=== PATIENT | female | born 1940 | race Caucasian/White ===

== ENCOUNTER → 2020-09-02 | Outpatient (CLI) | payer MEDICARE, BC ==
[~2020-09-02] MED LIST: IOHEXOL 240 MG/ML 50ML VIAL. ONE
--- NOTE | 2020-09-02 13:43 | RAD ---
DATE: 09/02/2020 1:00 PM EXAM: DIGITAL DIAGNOSTIC BILATERAL HISTORY: Bilateral digital diagnostic mammogram requested for intermittent ill-defined breast pain in the right breast between the 4-5 o'clock position. COMPARISON: No priors are currently available for comparison. Bilateral full field craniocaudal and mediolateral oblique images were obtained using digital technique. This study was interpreted with the benefit of Computerized Aided Detection (CAD). FINDINGS: Breast Density: FATTY The Breast Parenchyma is primarily fatty replaced. Breast parenchyma level density A. No suspicious masses, microcalcifications or architectural distortion is present to suggest malignancy in either breast. No mammographic correlate to the area of discomfort in the lower inner right breast. Since the breast tissue is fatty replaced and shows no mammographic abnormality, additional imaging by ultrasound was not pursued at this visit. The visualized axillae on mammography are unremarkable. IMPRESSION: No mammographic evidence of malignancy. BI-RADS CATEGORY: 1 NEGATIVE RECOMMENDED FOLLOW-UP: 12M 12 MONTH FOLLOW-UP Annual screening mammography is recommended, unless clinically indicated sooner based on symptoms or change in physical exam. PQRS compliance statement: Patient information was entered into a reminder system with a target due date for the next mammogram. Mammography is a sensitive method for finding small breast cancers, but it does not detect them all and is not a substitute for careful clinical examination. A negative mammogram does not negate a clinically suspicious finding and should not result in delay in biopsying a clinically suspicious abnormality. "Our facility is accredited by the [employer] Mammography Program."
--- NOTE | 2020-09-02 16:58 | RAD ---
EXAM: Abdomen and pelvis CT without intravenous contrast. HISTORY: Epigastric pain. TECHNIQUE: Computed tomographic images of the abdomen and pelvis were obtained without contrast. Multiplanar reformatting was performed. *One or more of the following individualized dose reduction techniques were utilized for this examination: 1. Automated exposure control. 2. Adjustment of the mA and/or kV according to patient size. 3. Use of iterative reconstruction technique. COMPARISON: None. FINDINGS: A portion of the lower thorax demonstrates bilateral lower lobe bronchiectasis with pleural parenchymal scarring. There are few tiny pulmonary nodules measuring 2 mm. These are benign in appearance. There is no infiltrate or pleural effusion. The heart is normal in size. There is a small hiatal hernia. There is a small hepatic cyst. There are a few hepatic granulomas. There is no suspicious hepatic lesion. The gallbladder is absent. The pancreas is unremarkable. There are splenic granulomas. The adrenal glands are unremarkable. The kidneys are unremarkable. There is no appendicitis. There is no bowel obstruction. There is no abnormal bowel wall thickening. The urinary bladder, uterus and adnexal regions are unremarkable. The aorta is normal in caliber. There is no lymphadenopathy. There is degenerative change throughout the spine. There is no acute or suspicious osseous finding. IMPRESSION: 1. No acute abdominal or pelvic finding. 2. Small hiatal hernia. 3. Small hepatic cyst. 4. Bilateral lower lung bronchiectasis with pleural parenchymal scarring. No consolidated infiltrate is seen. Electronically signed by: Nathalie Gomez MD (09/02/2020 4:55 PM) [facility]
--- NOTE | 2020-09-02 17:06 | RAD ---
INDICATION: Reason: NECK SWELLING / Spl. Instructions: / History: COMPARISON: None. FINDINGS: Focused images are obtained at the left side of the neck. Within the left side of the neck inferior to the ear there is a subcutaneous hypoechoic structure identified measuring 9 x 7 x 3 mm with vascular flow within. Submandibular gland as well as some vessels are seen in the region as well. IMPRESSION: * Inferior to the patient's left ear there is a oval-shaped hypoechoic structure seen in the subcutaneous soft tissues. This could be secondary to a prominent lymph node within the region although a small soft tissue mass could have this appearance as well. This could either be followed clinically or with a follow-up ultrasound to ensure no growth. No drainable fluid collection in the region. Electronically signed by: Jake Ferrell MD (09/02/2020 5:03 PM) [id number]
== END ==
LOC: MAMMO 12:39
PROVIDERS: ATTEND Family Medicine
DX: K44.9 Diaphragmatic hernia without obstruction or gangrene (principal); R92.2 Inconclusive mammogram; J47.9 Bronchiectasis, uncomplicated; K76.9 Liver disease, unspecified; K76.89 Other specified diseases of liver; Z90.49 Acquired absence of other specified parts of digestive tract
CPT/HCPCS: 74176; 76536; 77066

== ENCOUNTER → 2021-04-07 | Outpatient (CLI) | payer MEDICARE, BC ==
--- NOTE | 2021-04-07 17:38 | RAD ---
US HEAD/NECK SOFT TISSUE History: Follow-up left neck lump. Comparison: 09/02/2020 Technique: Multiple grayscale and color Doppler images of the neck were obtained in the area of patie nt concern. Findings: The previously described subcutaneous hypoechoic structure measured up to 9 mm inferior the left ear is not well visualized on the current exam. Normal appearance of the visualized submandibular and par otid glands. A normal-sized and normal morphology lymph node measuring 2.6 x 0.9 x 0.9 cm is identifi ed with preserved fatty hilum and vascular pedicle. IMPRESSION: 1. Nonvisualization of previously described subcutaneous nodule in the left neck below the ear. This may be resolved or unable to be located by patient intervention. 2. No significant abnormalities in the area of concern in the left neck. Electronically signed by: Santiago Augustin MD (04/07/2021 5:36 PM) [id number]
== END ==
LOC: US 09:26
PROVIDERS: ATTEND Family Medicine
DX: R22.1 Localized swelling, mass and lump, neck (principal)
CPT/HCPCS: 76536

== ENCOUNTER → 2021-09-10 | Outpatient (CLI) | payer MEDICARE, BC ==
--- NOTE | 2021-09-10 17:27 | RAD ---
Bilateral digital screening 2-D and 3-D (digital breast tomosynthesis) mammogram: Reason for examination: Routine screening. Comparison: Mammograms from the 09-20, 05/22/2019, 09/14/2016, and left breast ultrasound from 2015. Interpretation was made with the benefit of CAD. FINDINGS: Breast density: Category B. There are scattered areas of fibroglandular density. No suspicious breast mass, malignant appearing calcifications, or architectural distortion is seen. T here is a benign intramammary lymph node but position left breast at posterior depth is a 3 mm oval c ircumscribed mass in the 6:00 position of the left breast middle depth which may represent a cyst. Cy sts were seen in this location on outside 2016 ultrasound. IMPRESSION: No evidence of malignancy. Assessment: BI-RADS 2. Benign findings. Recommendation: Routine screening mammograms. The patient will receive a letter with the results in the mail. Patient information will be entered i nto the mammography reminder system with a target recall date for the next mammogram. A reminder efren er will be generated. Electronically signed by: Bridgett Salcedo MD (09/10/2021 5:25 PM) [id number]
== END ==
LOC: MAMMO 10:26
PROVIDERS: ATTEND Family Medicine
DX: Z12.31 Encounter for screening mammogram for malignant neoplasm of breast (principal); N63.24 Unspecified lump in the left breast, lower inner quadrant
CPT/HCPCS: 77063; 77067

== ENCOUNTER → 2021-10-15 | Outpatient (CLI) | payer MEDICARE, BC ==
--- NOTE | 2021-10-15 10:42 | RAD ---
EXAM: Cervical spine, 4 views. HISTORY: Pain. COMPARISON: None. FINDINGS: 4 views of the cervical spinal obtained. There is no listhesis. The vertebral bodies are no rmal in height. There is mild multilevel endplate remodeling and facet arthropathy. There is disc spa ce narrowing at C6-C7. IMPRESSION: Multilevel degenerative change, primarily at C6-C7. No acute osseous finding. Electronically signed by: Nathalie Gomez MD (10/15/2021 10:40 AM) [id number]
== END ==
LOC: RAD 10:07
PROVIDERS: ATTEND Family Medicine
DX: M47.22 Other spondylosis with radiculopathy, cervical region (principal); M48.02 Spinal stenosis, cervical region
CPT/HCPCS: 72040